=== PATIENT | female | born 1990 | race Caucasian/White ===

== ENCOUNTER 2019-06-04 14:11 | Emergency (ER) | payer SELFPAY ==
[2019-06-04] MEDS ORDERED: ONDANSETRON 4 MG/2 ML (SDV) Z0FRAN IVP ONE (15:15)
[2019-06-04] MEDS ORDERED: ACETAMINOPHEN 325 MG TABLET PO ONE (15:15)
[2019-06-04] MEDS ORDERED: KETOROLAC 30 MG/ML VIAL IVP ONE (15:15)
[2019-06-04 15:29] LABS: CLARITY,URINE CLEAR; COLOR,URINE YELLOW; PH,URINE 6.5 (5-9); PROTEIN,URINE NEGATIVE (NEGATIVE)
[2019-06-04 15:30] LABS: BACTERIA,URINE NEGATIVE /HPF; BILIRUBIN,URINE NEGATIVE (NEGATIVE); GLUCOSE, URINE (UA) NEGATIVE (NEGATIVE); KETONES,URINE NEGATIVE (NEGATIVE); LEUKOCYTE ESTERASE ,URINE NEGATIVE (NEGATIVE); NITRITE,URINE NEGATIVE (NEGATIVE); SQUAMOUS EPITHELIAL CELL,UR RARE /HPF; WBC,URINE RARE /HPF
[2019-06-04 15:41] LABS: HEMATOCRIT 40 % (35-52); HEMOGLOBIN 13.6 G/DL (11.5-16.0); MEAN CORPUSCULAR HEMOGLOBIN 30 PG (25-34); MEAN CORPUSCULAR VOLUME 88 FL (80-99); WHITE BLOOD COUNT 3.4 10^3/uL (4.3-11.0)
[2019-06-04 15:42] LABS: BASOPHILS % (AUTO) 1 % (0-10); EOSINOPHILS # (AUTO) 0.1 10^3/uL (0.0-0.3); EOSINOPHILS % (AUTO) 2 % (0-10); LYMPHOCYTES # (AUTO) 0.6 X 10^3 (1.0-4.0); LYMPHOCYTES % (AUTO) 19 % (12-44); MEAN CORPUSCULAR HGB CONC 34 G/DL (32-36); MEAN PLATELET VOLUME 10.6 FL (7.4-10.4); MONOCYTES # (AUTO) 0.4 X 10^3 (0.0-1.0); MONOCYTES % (AUTO) 11 % (0-12); NEUTROPHILS # (AUTO) 2.3 X 10^3 (1.8-7.8); NEUTROPHILS % (AUTO) 67 % (42-75); PLATELET COUNT 152 10^3/uL (130-400); RED CELL DISTRIBUTION WIDTH 12.1 % (10.0-14.5)
--- NOTE | 2019-06-04 15:48 | ED General ---
General Stated Complaint: ABD PAIN; VOMITING; FEVER History of Present Illness Date Seen by Provider: Jun 04, 2019 Time Seen by Provider: 14:19 Initial Comments The patient is a 29-year-old female with no significant past medical history. She presents with concern for acute onset of bilateral lower quadrant abdominal discomfort with onset about 2 weeks ago. Patient states that discomfort is sharp and constant and nothing seems to make it better or worse. Associated nausea with multiple episodes of nonbloody vomiting each day over the last couple of weeks. No associated fevers, cough, shortness of breath or chest pain, upper or specifically right-sided abdominal pain, flank pain, back pain, dysuria or hematuria, unusual vaginal discharge or bleeding, changes in bowel habits. Patient has had extensive workup for these issues already. 2 weeks ago she was seen in the [place] emergency department at which time pelvic examination was concerning for what sounds like PID and so the patient was placed on antibiotics which she took to completion but states that symptoms did not improve. Today she had a transvaginal pelvic ultrasound completed through [facility] clinic which was without any evidence of acute process per tech report. She tried to see her hand umbrella tipper Dr. Rodriguez for intractable discomfort but he was out of the office so she was told to come here. Allergies and Home Medications Allergies Coded Allergies: No Known Drug Allergies (Unverified , 06/04/19) Patient Home Medication List Home Medication List Reviewed: Yes Review of Systems Review of Systems Constitutional: see HPI All Other Systems Reviewed Negative Unless Noted: Yes (Negative excepted noted.) Past Tnxowrt-Cfcriy-[place] Hx Past Med/Social Hx: Reviewed Nursing Past Med/Soc Hx Patient Social History Recent Foreign Travel: No Contact w/Someone Who Travel: No Family Medical History Reviewed Nursing Family Hx Physical Exam Vital Signs Capillary Refill : Height, Weight, BMI Height: '" Weight: lbs. oz. kg; BMI Method: General Appearance: No Apparent Distress Comments This is a young female appearing nontoxic and in no acute distress. Head is normocephalic and atraumatic. Neck is supple and nontender. Oropharynx is moist. Lungs are clear to auscultation at all stations. There is a normal S1 and S2 without rubs or gallops and capillary refill is appropriate, less than 2 seconds globally. Abdomen is soft and nondistended with mild bilateral lower quadrant abdominal tenderness to palpation without rebound or guarding. Skin is warm and dry without cyanosis, clubbing or edema. Psychiatrically, the patient demonstrates appropriate mood and affect and is alert. Progress/Results/Core Measures Suspected Sepsis SIRS Temperature: Pulse: Respiratory Rate: Laboratory Tests 06/04/19 15:24: White Blood Count 3.4L Blood Pressure / Mean: Laboratory Tests 06/04/19 15:24: Creatinine 0.80, Platelet Count 152, Total Bilirubin 0.5 Results/Orders Lab Results Laboratory Tests Test 06/04/19 15:00 06/04/19 15:24 Range/Units Urine Color YELLOW Urine Clarity CLEAR Urine pH 6.5 5-9 Urine Specific [place] <=1.005 1.016-1.022 Urine Protein NEGATIVE NEGATIVE Urine Glucose (UA) NEGATIVE NEGATIVE Urine Ketones NEGATIVE NEGATIVE Urine Nitrite NEGATIVE NEGATIVE Urine Bilirubin NEGATIVE NEGATIVE Urine Urobilinogen 0.2 < = 1.0 MG/DL Urine Leukocyte Esterase NEGATIVE NEGATIVE Urine RBC (Auto) NEGATIVE NEGATIVE Urine RBC NONE /HPF Urine WBC RARE /HPF Urine Squamous Epithelial Cells RARE /HPF Urine Crystals NONE /LPF Urine Bacteria NEGATIVE /HPF Urine Casts NONE /LPF Urine Mucus NONE /LPF Urine Culture Indicated NO Urine Test NEGATIVE NEGATIVE White Blood Count 3.4 L 4.3-11.0 10^3/uL Red Blood Count 4.48 4.35-5.85 10^6/uL Hemoglobin 13.6 11.5-16.0 G/DL Hematocrit 40 35-52 % Mean Corpuscular Volume 88 80-99 FL Mean Corpuscular Hemoglobin 30 25-34 PG Mean Corpuscular Hemoglobin Concent 34 32-36 G/DL Red Cell Distribution Width 12.1 10.0-14.5 % Platelet Count 152 130-400 10^3/uL Mean Platelet Volume 10.6 H 7.4-10.4 FL Neutrophils (%) (Auto) 67 42-75 % Lymphocytes (%) (Auto) 19 12-44 % Monocytes (%) (Auto) 11 0-12 % Eosinophils (%) (Auto) 2 0-10 % Basophils (%) (Auto) 1 0-10 % Neutrophils # (Auto) 2.3 1.8-7.8 X 10^3 Lymphocytes # (Auto) 0.6 L 1.0-4.0 X 10^3 Monocytes # (Auto) 0.4 0.0-1.0 X 10^3 Eosinophils # (Auto) 0.1 0.0-0.3 10^3/uL Basophils # (Auto) 0.0 0.0-0.1 10^3/uL Sodium Level 139 135-145 MMOL/L Potassium Level 3.4 L 3.6-5.0 MMOL/L Chloride Level 104 98-107 MMOL/L Carbon Dioxide Level 21 21-32 MMOL/L Anion Gap 14 5-14 MMOL/L Blood Urea Nitrogen 12 7-18 MG/DL Creatinine 0.80 0.60-1.30 MG/DL Estimat Glomerular Filtration Rate > 60 BUN/Creatinine Ratio 15 Glucose Level 98 70-105 MG/DL Calcium Level 8.8 8.5-10.1 MG/DL Corrected Calcium 8.8 8.5-10.1 MG/DL Total Bilirubin 0.5 0.1-1.0 MG/DL Aspartate Amino Transf (AST/SGOT) 12 5-34 U/L Alanine Aminotransferase (ALT/SGPT) 10 0-55 U/L Alkaline Phosphatase 55 40-136 U/L Total Protein 7.0 6.4-8.2 GM/DL Albumin 4.0 3.2-4.5 GM/DL My Orders Orders - SREE KOTHARI MD Cbc With Automated Diff (06/04/19 15:11) Comprehensive Metabolic Panel (06/04/19 15:11) Ua Culture If Indicated (06/04/19 15:11) Hcg,Qualitative Urine (06/04/19 15:11) Wet Prep (06/04/19 15:11) Chlamydia Trachomatis Swab (06/04/19 15:11) Neisseria Gonorrhea Swab (06/04/19 15:11) Peripheral Iv Line Care 00,04,08,12,16,20 (06/04/19 15:11) Ct Abdomen/Pelvis W (06/04/19 15:11) Ketorolac Injection (Toradol Injection) (06/04/19 15:15) Acetaminophen Tablet/Caplet (Tylenol T (06/04/19 15:15) Ondansetron Injection (Zofran Injectio (06/04/19 15:15) Iohexol Injection (Omnipaque 350 Mg/Ml 1 (06/04/19 16:00) Received Contrast (Hold Metformin- Contr (06/04/19 16:00) Sodium Chloride Flush (Catheter Flush Sy (06/04/19 16:00) Ns (Ivpb) (Sodium Chloride 0.9% Ivpb Bag (06/04/19 16:00) Oxycodone Immediate Rel Tablet (Oxyir Ta (06/04/19 18:15) Ceftriaxone For Im Use (Rocephin For Im (06/04/19 18:15) Lidocaine 1% Inj 20 Ml (Xylocaine 1% Inj (06/04/19 18:15) Doxycycline Hyclate Tablet (Vibramycin T (06/04/19 18:04) Medications Given in ED Current Medications Medications Dose Ordered Sig/Nohelia Route Start Time Stop Time Status Last Admin Dose Admin Acetaminophen 975 mg ONCE ONCE PO 06/04/19 15:15 06/04/19 15:16 DC 06/04/19 15:32 975 MG Iohexol 100 ml ONCE ONCE IV 06/04/19 16:00 06/04/19 16:01 DC 06/04/19 16:23 100 ML Ketorolac Tromethamine 30 mg ONCE ONCE IVP 06/04/19 15:15 06/04/19 15:16 DC 06/04/19 15:32 30 MG Ondansetron HCl 4 mg ONCE ONCE IVP 06/04/19 15:15 06/04/19 15:16 DC 06/04/19 15:32 4 MG Sodium Chloride 10 ml NEEDED PRN IV 06/04/19 16:00 06/04/19 16:23 10 ML Sodium Chloride 100 ml ONCE ONCE IV 06/04/19 16:00 06/04/19 16:01 DC 06/04/19 16:23 100 ML Vital Signs/I&O Capillary Refill : Progress Note : Time: 15:48 Progress Note 29-year-old female who presents with 2 weeks of bilateral lower quadrant abdominal discomfort/pelvic discomfort, with negative workup at an outside emergency department and not any better with antibiotics presumably covering for PID. Negative pelvic ultrasound earlier today. We will place IV and give medication for discomfort and nausea and will obtain a CT scan of the abdomen and pelvis to further evaluate the situation. We'll repeat pelvic examination as well. I have set expectations with the patient that we may not arrive at an answer here in the emergency department but we will rule out dangerous pathology and if workup is reassuring the patient will be discharge with medication for pain and nausea to follow-up with Dr. Rodriguez on Friday in the office as are sc heduled for reevaluation and discussion of next steps in care. She understands and agrees. Update: patient actually treated with Flagyl for BV at the visit to [place]. Update 1700: Patient would prefer to hold off on repeat pelvic examination at this time. She is resting comfortably in no acute distress upon reassessment. She states pain is a little better. Workup unremarkable and reassuring aside from evidence of inflammation about the right adnexa concerning for possible PID/small TOA. Case is discussed with Dr. Morgan of gynecology at [facility] who recommends Rocephin and doxycycline in treatment for PID and follow-up on Friday with Dr. Hill in the office as already scheduled. Will prescribe medication for discomfort and nausea as well. She understands that if she feels worse is that of better or develops other new symptoms of concern that she should return to the emergency department immediately for reevaluation. All questions are answered. Diagnostic Imaging Comments Date of Exam:06/04/19 CT ABDOMEN/PELVIS W EXAMINATION: CT Abdomen and Pelvis with intravenous contrast. TECHNIQUE: Multiple contiguous axial images were obtained through the abdomen and pelvis after the uneventful administration of intravenous contrast. All CT scans use one or more of the following dose optimizing techniques: automated exposure control, MA and/or KvP adjustment based on a patient size and exam type, or iterative reconstruction. HISTORY: Lower abdominal pain. COMPARISON: None available. FINDINGS: Limited views of the lower thorax are unremarkable. The liver is normal without focal lesion. There is no biliary ductal dilation. Gallbladder is normal. Pancreas is normal. Spleen is mildly enlarged. Adrenal glands are normal. The kidneys are normal. There is no hydronephrosis. Urinary bladder is normal. There is hypoenhancement of the cervix with inflammatory changes in the right adnexa and a 2.1 cm rim-enhancing focus centered in the right ovary. Small amount of pelvic fluid is seen. Bilateral tubal ligation clips are seen. Left ovary is normal. Endometrium is thickened. Visualized bowel is normal in caliber without obstruction or inflammation. No free fluid or air. No abdominal or pelvic lymphadenopathy. Aorta is normal in caliber without aneurysm. There are no suspicious osseous lesions. There are bilateral L5 pars defects. IMPRESSION: 1. Inflammatory changes in the right adnexa with rim enhancing focus in the right ovary. Findings may reflect pelvic inflammatory disease with a small tubo-ovarian abscess versus recent ovulation. Ultrasound could be helpful for further evaluation. 2. Mild splenomegaly. Dictated on workstation # [id number] Departure Impression Primary Impression: Pelvic inflammatory disease (PID) Disposition: HOME, SELF-CARE Condition: Improved Departure-Patient Inst. Referrals: NO,LOCAL PHYSICIAN (PCP/Family) Primary Care Physician Patient Instructions: Pelvic Inflammatory Disease Add. Discharge Instructions: Take the medication as prescribed for your symptoms and complete the antibiotic that is prescribed to as well. Follow-up on Friday in the office with Dr. Hill. Return to the emergency department right away for worsening symptoms or other new concerns. Work/School Note: Family Work Note Patient Received Medical Care In the Emergency Department On: Jun 04, 2019 Patient Will Be Able to Return to Work/School On: Jun 07, 2019 Patient Restrictions: NONE SREE KOTHARI MD Jun 04, 2019 15:48
[2019-06-04 15:57] LABS: BUN/CREATININE RATIO 15; CARBON DIOXIDE 21 MMOL/L (21-32); CHLORIDE 104 MMOL/L (98-107); GFR ESTIMATED > 60; POTASSIUM 3.4 MMOL/L (3.6-5.0); SODIUM 139 MMOL/L (135-145)
[2019-06-04 15:58] LABS: ALANINE AMINOTRANSFERASE 10 U/L (0-55); ALKALINE PHOSPHATASE 55 U/L (40-136); BILIRUBIN,TOTAL 0.5 MG/DL (0.1-1.0); CALCIUM 8.8 MG/DL (8.5-10.1); GLUCOSE 98 MG/DL (70-105)
[2019-06-04] MEDS ORDERED: IOHEXOL 350 MG/ML 100 ML (OMNIPAQUE 350) VIAL IV ONE (16:00)
[2019-06-04] MEDS ORDERED: NS 100 ML (IVPB) BAG IV ONE (16:00)
[2019-06-04] MEDS ORDERED: HOLD METFORMIN - RECEIVED CONTRAST 20 ML VIAL IV SCH (16:00)
[2019-06-04] MEDS ORDERED: CATHETER FLUSH 10 ML SYR IV PRN (16:00)
--- NOTE | 2019-06-04 16:43 | Diagnostic Imaging Report ---
EXAMINATION: CT Abdomen and Pelvis with intravenous contrast. TECHNIQUE: Multiple contiguous axial images were obtained through the abdomen and pelvis after the uneventful administration of intravenous contrast. All CT scans use one or more of the following dose optimizing techniques: automated exposure control, MA and/or KvP adjustment based on a patient size and exam type, or iterative reconstruction. HISTORY: Lower abdominal pain. COMPARISON: None available. FINDINGS: Limited views of the lower thorax are unremarkable. The liver is normal without focal lesion. There is no biliary ductal dilation. Gallbladder is normal. Pancreas is normal. Spleen is mildly enlarged. Adrenal glands are normal. The kidneys are normal. There is no hydronephrosis. Urinary bladder is normal. There is hypoenhancement of the cervix with inflammatory changes in the right adnexa and a 2.1 cm rim-enhancing focus centered in the right ovary. Small amount of pelvic fluid is seen. Bilateral tubal ligation clips are seen. Left ovary is normal. Endometrium is thickened. Visualized bowel is normal in caliber without obstruction or inflammation. No free fluid or air. No abdominal or pelvic lymphadenopathy. Aorta is normal in caliber without aneurysm. There are no suspicious osseous lesions. There are bilateral L5 pars defects. IMPRESSION: 1. Inflammatory changes in the right adnexa with rim enhancing focus in the right ovary. Findings may reflect pelvic inflammatory disease with a small tubo-ovarian abscess versus recent ovulation. Ultrasound could be helpful for further evaluation. 2. Mild splenomegaly. Dictated by: Dictated on workstation # [id number]
[2019-06-04] MEDS ORDERED: DOXYCYCLINE 100 MG (VIBRAMYCIN) TABLET PO STA (18:04)
[2019-06-04] MEDS ORDERED: DOXY100T2 PO (18:09)
[2019-06-04] MEDS ORDERED: ONDA4TAB11 PO (18:09)
[2019-06-04] MEDS ORDERED: IBUP-1780 PO (18:09)
[2019-06-04] MEDS ORDERED: HYDR-4226 PO (18:09)
[2019-06-04] MEDS ORDERED: cefTRIAXone 250 MG/ML vial (IM ONLY) IM ONE (18:15)
[2019-06-04] MEDS ORDERED: LIDOCAINE 1% INJ 20 ML 20 ML VIAL INJ ONE (18:15)
[2019-06-04 19:00] VITALS: BP 139/93
[2019-06-04] MEDS ORDERED: OXYC-471 PO (19:11)
== END 2019-06-04 19:00 | disposition home or self-care (01) ==
LOC: ER FS 14:14
DX: N73.9 Female pelvic inflammatory disease, unspecified (principal)
CPT/HCPCS: 36415; 74177; 80053; 81000; 84703; 85025; 96372; 96374; 96375